=== PATIENT | female | born 1980 | race Caucasian/White ===

== ENCOUNTER 2024-09-03 23:28 | Emergency (ER) | payer BC, MEDICAID, SELFPAY ==
[2024-09-03 23:30] VITALS: BMI 32.6
[2024-09-03 23:36] VITALS: BP 155/100; PULSE 100; RESP 19; TEMP 36.8; O2SAT 98
[2024-09-04] MEDS: ONDANSETRON ODT 4 MG TABRAP PO (00:13)
[2024-09-04] MEDS: HYDROcodone/APAP 5/325 TABLET 1 TAB PO (00:13)
--- NOTE | 2024-09-04 00:24 | XR_ITS ---
Examination: Shoulder,right, 3 views Technique: Shoulder AP internal rotation, AP external rotation, Y view shoulder, 3 views Exam date and time :September 04, 2024 0035 hrs. Indications: Patient fell today with injury to the shoulder, shoulder pain. Findings: There are 2 identical internal rotation views of the shoulder Calcific tendinitis No shoulder fracture or dislocation Impression: No shoulder fracture or dislocation
--- NOTE | 2024-09-04 00:24 | XR_ITS ---
Examination: Right elbow 3 views Technique: Elbow AP, oblique, lateral 3 views Exam date and time: September 04, 2024 0032 hrs. Indications: Patient fell today with injury to the elbow, elbow pain Findings: No fracture or dislocation Impression: No fracture or dislocation.
--- NOTE | 2024-09-04 00:27 | EDNOTE_ITS ---
ED Wound/Laceration-RME/HPI General Chief Complaint: Wound/Laceration Stated Complaint: LAC TO RIGHT ARM S/P FALL Time Seen by Provider: 09/04/24 00:07 Arrival date/time: 09/03/24 23:28 44F with history of HTN presents to ED with R shoulder and elbow pain, as well as elbow lac after trip and fall today. Patient denies hitting her head. Patient has had a tetanus shot in the past 5 years. Limitations: no limitations Related Data Previous Rx's ?Medication ?Instructions ?Recorded albuterol sulfate 90 mcg/actuation 2 puff inhalation QID #8.5 grams 10/15/21 aerosol inhaler azithromycin 250 mg tablet See Rx Instructions PO .COMPLEX #6 10/15/21 tabs doxycycline hyclate 100 mg tablet 100 mg PO BID 5 days #10 tabs 09/04/24 Allergies Allergy/AdvReac Type Severity Reaction Status Date / Time phenytoin [From Dilantin] Allergy Severe Swelling Verified 09/03/24 23:33 of Lip/Tongue/Throat ketorolac [From Toradol] Allergy Mild Rash Verified 09/03/24 23:33 Penicillins Allergy Mild Rash Verified 09/03/24 23:33 sumatriptan [From Imitrex] Allergy Mild Rash Verified 09/03/24 23:33 Review of Systems Review of Systems Systems Reviewed: All systems reviewed, normal except as documented Constitutional Constitutional: Reports system reviewed and no additional complaints, except as documented, Denies fever(s) and Denies headache(s) ENT Ears, Nose, Mouth, and Throat: Denies disequilibrium and Denies headache(s) Cardiovascular Cardiovascular: Reports system reviewed and no additional complaints, except as documented, Denies chest pain and Denies dyspnea Respiratory Respiratory: Reports system reviewed and no additional complaints, except as documented, Denies cough and Denies dyspnea Gastrointestinal Gastrointestinal: Reports system reviewed and no additional complaints, except as documented, Denies abdominal pain, Denies nausea and Denies vomiting Musculoskeletal Musculoskeletal: Reports as per HPI and Reports arthralgias Integumentary/Breasts Skin/Breast: Reports as per HPI and Reports skin pain Neurologic Neurologic: Reports system reviewed and no additional complaints, except as documented, Denies confusion, Denies disequilibrium and Denies headache(s) Psychiatric Psychiatric: Denies confusion Past Medical History Social History SMOKING STATUS: Never smoker ED Exam General Limitations: Present no limitations General appearance: Present alert and in no apparent distress Head Head exam: Present atraumatic Eye Eye exam: Present normal appearance, PERRL and EOMI ENT ENT exam: Present normal exam, normal oropharynx and mucous membranes moist Neck Neck exam: Present normal inspection, full ROM and trachea midline Chest Chest inspection: Present normal inspection and symmetric chest wall rise Respiratory Respiratory exam: Present normal lung sounds bilaterally Cardiovascular Cardiovascular exam: Present regular rate, normal rhythm and normal heart sounds Abdominal Exam Abdominal exam: Present soft and normal bowel sounds Extremities Exam Extremities exam: Present full ROM Expanded Upper Extremity Exam Shoulder exam: Present full ROM (R), tenderness and ecchymosis Elbow exam: Present full ROM, tenderness, laceration (3 cm) and ecchymosis Back Exam Back exam: Present normal inspection and full ROM Neurological Exam Neurological exam: Present alert, oriented X3 and CN II-XII intact Psychiatric Psychiatric exam: Present normal affect and normal mood Skin Skin exam: Present warm, dry, intact and normal color Course Quality Measures none Orders Category Date Time Status Wound Care NOW Care 09/04/24 00:07 Active letha wrap [Splint / Immobilizer] STAT Care 09/04/24 00:58 Active XR elbow comp RT min 3V Stat Exams 09/04/24 00:24 Taken XR shoulder RT min 2V Stat Exams 09/04/24 00:24 Taken HYDROcodone*/APAP 5/325 [[place] 5/325] Med 09/04/24 00:08 Discontinued 1 tab PO Q4HR PRN HYDROcodone*/APAP 5/325 [[place] 5/325] Med 09/04/24 00:10 Discontinued 1 tab PO X1 ONE Morphine Inj Med 09/04/24 00:24 Discontinued 5 mg IM X1 ONE Ondansetron Inj [Zofran Inj] Med 09/04/24 00:24 Discontinued 4 mg IM X1 ONE Ondansetron Odt [Zofran Odt] Med 09/04/24 00:07 Discontinued 4 mg PO X1 ONE Vital Signs Vital signs: Vital Signs Temperature 98.2 F 09/03/24 23:36 Pulse Rate 100 09/03/24 23:36 Respiratory Rate 19 09/03/24 23:36 Blood Pressure 155/100 H 09/03/24 23:36 Pulse Oximetry (%) 98 09/03/24 23:36 Oxygen Delivery Method Room Air 09/03/24 23:36 O2 at 98% on RA and WNLs Wound / Laceration MDM Narrative MDM Narrative:: 44F with history of HTN presents to ED with R shoulder and elbow pain, as well as elbow lac after trip and fall today. Patient denies hitting her head. Patient has had a tetanus shot in the past 5 years. Physical exam reveals R elbow/shoulder tenderness and bruising, but normal ROM. 3 cm lac on R elbow. Patient is afebrile, calm, and alert. Wound cleaned and closed with 9 marcello. Given career development counselor to have them removed in about 10 days. Wet XR read no acute fx pending official report. Given LETHA, sling, and additional career development counselor. Patient data External records reviewed:: [facility] previous records Clinical information provided by:: patient Social determinants that could affect healthcare access:: none Patient has the following chronic illnesses:: HTN How is presenting disease/condition affected by chronic disease/condition?: uneffected by Evaluation data The following diagnostics were reviewed and interpreted by me:: radiology exam(s) Lab and/or radiology exams considered but not ordered:: ordered Interpretation Summary: above Medications / Prescriptions Medications or Prescriptions considered but not ordered:: ordered Medication administrations:: Medication Administration History Discontinued Medications Hydrocodone Bitart/Acetaminophen (Hydrocodone/Apap 5/325 Tablet) 1 tab PO Q4HR PRN PRN Reason: PAIN Stop: 09/09/24 00:07 Hydrocodone Bitart/Acetaminophen (Hydrocodone/Apap 5/325 Tablet) 1 tab PO X1 ONE Stop: 09/04/24 00:11 Last Admin: 09/04/24 00:13 Dose: 1 tab Documented By: Morphine Sulfate (Morphine Sulf Inj 10 Mg/Ml Vial) 5 mg IM X1 ONE Stop: 09/04/24 00:25 Last Admin: 09/04/24 00:40 Dose: 5 mg Documented By: Ondansetron HCl (Ondansetron Odt 4 Mg Tabrap) 4 mg PO X1 ONE; Protocol Stop: 09/04/24 00:08 Last Admin: 09/04/24 00:13 Dose: 4 mg Documented By: Ondansetron HCl (Ondansetron Inj 2 Mg/Ml Inj 2 Ml) 4 mg IM X1 ONE; Protocol Stop: 09/04/24 00:25 Last Admin: 09/04/24 00:40 Dose: 4 mg Documented By: above Consultations Consultation(s) initiated? (list below): No Diagnosis Wound Differential Diagnosis: laceration, abrasion, avulsion of skin and other (shoulder fx/disclocation, elbow contusion/fx) Most likely diagnosis given after review of the tests above:: laceration and elbow contusion Admission Indicated Admission indicated?: not indicated Admission Request Was there a request for admission?: No Disposition Plan Disposition Plan: Discharge Discharge Attestation Discharge Attestation: The patient and all family members were given an opportunity to ask questions and understood the discharge instructions. Discharge instructions specifically effects, indications for sooner follow up or return to the emergency department, and the expected course of current diagnosis. Patient condition: Stable Discharge Plan Plan Patient Disposition: HOME (Self Care) Disposition Comment: Stable Prescriptions/Referrals Prescriptions/Med Rec: New doxycycline hyclate 100 mg tablet 100 mg PO BID 5 Days Qty: 10 0RF No Action azithromycin 250 mg tablet See Rx Instructions .ROUTE .COMPLEX Qty: 6 0RF Rx Instructions: For 250 mg dose pack: take 500 mg today (day 1), then 250 mg for 4 days (days 2-5) albuterol sulfate 90 mcg/actuation HFA aerosol inhaler 2 puff inhalation QID Qty: 8.5 0RF Problem List Clinical Impression: Laceration, Contusion of elbow Patient/Caregiver Discharge Instructions Additional Instructions: Please follow-up with PCP within 24-48 hours and return immediately if symptoms worsen. If elbow/shoulder problem persists, recommend outpatient PT and/or MRI follow- up. In the meantime, rest, use ice/heat, and/or compression. Have marcello removed in about 10 days. Print Language: Telugu Stand Alone Forms: Patient Portal Info Letter LU/JU Supervising Physician LU/JU Supervising Physician: Dr. Bang
--- NOTE | 2024-09-04 00:28 | PC.NURSE ---
Patient medicated with PO Zofran and PO norco then patient had emesis x2 within 5 minutes of medication administration. provider aware. new medication ordered.
[2024-09-04] MEDS: ONDANSETRON INJ 2 MG/ML INJ 2 ML 4 MG IM (00:40)
[2024-09-04] MEDS: MORPHINE SULF INJ 10 MG/ML VIAL 5 MG IM (00:40)
== END 2024-09-04 01:08 | disposition home or self-care (01) ==
LOC: SERX 09-04 01:05
PROVIDERS: Emergency Provider Emergency Medicine
DX: S51.011A Laceration without foreign body of right elbow, initial encounter (principal); S49.91XA Unspecified injury of right shoulder and upper arm, initial encounter; W01.0XXA Fall on same level from slipping, tripping and stumbling without subsequent striking against object, initial encounter
CPT/HCPCS: 12002; 73030; 73080; 96372; 99284; J2270; J2405; Q0162; A9270